=== PATIENT | female | born 1945 | race Caucasian/White ===

== ENCOUNTER → 2018-01-09 | Outpatient (CLI) | payer BC ==
[~2018-01-09] MED LIST: ABIL5TAB6 PO; ALPR1TAB3 PO; AMBI12.5 PO; AUGM875 PO; BACL10TA PO; GLUC1000 PO; KETO10 PO; LORT5TAB PO; PRIS50TA PO; RITA20TA PO; SIMV10TA OR; SYNT88TA PO; TAB-TAB PO; TREXIMET PO; VIST50CA PO
--- NOTE | 2018-01-10 11:23 | EKG ---
Date Performed: 01/09/2018 Time Performed: 13:15:14 PTAGE: 72 years EKG: Sinus rhythm . Extensive ST-T changes are nonspecific Borderline ECG PREVIOUS TRACING 01/06/2011 Since the previous tracing, no significant change noted DOCTOR: Hunter Yeung Interpretating Date/Time 01/10/2018 11:22:34
== END ==
LOC: HCAV 12:53
PROVIDERS: ATTEND Urology
DX: Z01.818 Encounter for other preprocedural examination (principal); R94.31 Abnormal electrocardiogram [ECG] [EKG]
CPT/HCPCS: 93005